=== PATIENT | male | born 1950 | race Caucasian/White ===

== ENCOUNTER 2017-08-26 07:30 | Day surgery (SDC) | payer OTHER, MEDICARE ==
[2017-08-21 15:12] VITALS: BMI 29.4
[2017-08-26] MEDS ORDERED: PROPOFOL 20 ML ONE ×2 (07:32)
[2017-08-26] MEDS ORDERED: LIDOCAINE HCL/PF 2% SDV 5ML VIAL ONE (07:41)
[2017-08-26 09:15] VITALS: BP 101/65; PULSE 65; TEMP 98
== END 2017-08-26 09:16 | disposition home or self-care (01) ==
LOC: FASU-ENDO 07:30
PROVIDERS: ATTEND Internal Medicine Gastroenterology
PROC: 0DJD8ZZ Inspection of Lower Intestinal Tract, Via Natural or Artificial Opening Endoscopic (ICD-10-PCS; principal; 2017-08-26 08:22)
DX: Z86.010 Personal history of colon polyps (principal); Z83.71 Family history of colonic polyps